=== PATIENT | female | born 1955 | race Caucasian/White ===

== ENCOUNTER → 2024-11-21 11:01 | Outpatient (REF) | payer MEDICARE, OTHER, SELFPAY | LOC: WDC 11:01 | PROVIDERS: ATTENDING PHYSICIAN Physician Assistant | DX: Z12.31 Encounter for screening mammogram for malignant neoplasm of breast (principal) | CPT/HCPCS: 77063; 77067 ==

== ENCOUNTER → 2025-07-03 09:01 | Outpatient (REF) | payer MEDICARE, OTHER, SELFPAY ==
[2025-07-03 10:16] LABS: Urine Character Clear (Clear)
[2025-07-03 10:27] LABS: Urine Squamous Cell >30 /LPF (Few); Urine Urothelial Cell 0-2 /LPF (FEW)
[2025-07-03 10:28] LABS: Urine White Cell 0-2 /HPF (0-5)
[2025-07-03 10:46] LABS: ALT (SGPT) 18 U/L (0-35); AST (SGOT) 19 U/L (14-36); Albumin 4.3 g/dl (3.5-5.0); Alkaline Phosphatase 72 U/L (38-126); Blood Urea Nitrogen 7 mg/dl (7-17); Calcium 10.4 mg/dl (8.4-10.2); Carbon Dioxide 31 mmol/L (22-30); Chloride 98 mmol/L (98-107); Glucose 101 mg/dl (70-99); HDL Cholesterol 76 mg/dl; LDL Cholesterol, Calculated 118 mg/dl; Potassium 4.4 mmol/L (3.5-5.1); Sodium 136 mmol/L (135-145); Total Protein 7.3 g/dl (6.3-8.2); Very Low Density Lipoprotein 14 mg/dl (0-30); eGFR > 60.00
[2025-07-03 10:55] LABS: Hematocrit 43.1 % (37.0-47.0); Hemoglobin 14.5 g/dL (12.0-16.0); Mean Corp Hgb Conc. 33.6 g/dL (33.0-37.0); Mean Corpuscular Volume 91.7 fL (81.0-99.0); Nucleated Red Blood Cells % 0 %; Platelet Count 366 10^3/uL (130-400); Red Cell Dist. Width 11.4 % (11.5-14.5)
== END ==
LOC: REG 09:01
PROVIDERS: ATTENDING PHYSICIAN Physician Assistant
DX: E78.5 Hyperlipidemia, unspecified (principal); I10 Essential (primary) hypertension
CPT/HCPCS: 36415; 80053; 80061; 81003; 81015; 85025

== ENCOUNTER → 2025-07-19 09:43 | Outpatient (REF) | payer MEDICARE, OTHER, SELFPAY ==
[2025-07-19 10:34] LABS: Hematocrit 42.6 % (37.0-47.0); Hemoglobin 14.4 g/dL (12.0-16.0); Mean Corp Hgb Conc. 33.8 g/dL (33.0-37.0); Mean Corpuscular Volume 89.3 fL (81.0-99.0); Nucleated Red Blood Cells % 0 %; Platelet Count 303 10^3/uL (130-400); Red Cell Dist. Width 11.5 % (11.5-14.5)
[2025-07-19 10:47] LABS: Urine Character Clear (Clear)
[2025-07-19 11:00] LABS: Calcium 9.6 mg/dl (8.4-10.2)
[2025-07-19 11:19] LABS: Vitamin D, 25-OH*** 36.7 ng/mL (30-80)
[2025-07-19 11:30] LABS: Urine Squamous Cell >30 /LPF (Few)
== END ==
LOC: REG 09:43
PROVIDERS: ATTENDING PHYSICIAN Physician Assistant
DX: R31.29 Other microscopic hematuria (principal); E83.52 Hypercalcemia; R79.89 Other specified abnormal findings of blood chemistry
CPT/HCPCS: 36415; 81003; 81015; 82306; 82330; 83970; 85025

== ENCOUNTER → 2025-07-26 11:01 | Outpatient (REF) | payer MEDICARE, OTHER, SELFPAY ==
[2025-07-26 12:08] LABS: Urine Character Clear (Clear)
[2025-07-26 12:20] LABS: Urine Squamous Cell 26-30 /LPF (Few)
== END ==
LOC: REG 11:01
PROVIDERS: ATTENDING PHYSICIAN Physician Assistant
DX: R82.71 Bacteriuria (principal)
CPT/HCPCS: 81003; 81015; 87086